=== PATIENT | male | born 1955 | race Caucasian/White ===

== ENCOUNTER → 2017-12-08 | Outpatient (CLI) | payer BC ==
[~2017-12-08] MED LIST: PROTONIX20 MG PO
== END ==
LOC: MHCPAIN 07:57
DX: G89.29 Other chronic pain (principal); M47.817 Spondylosis without myelopathy or radiculopathy, lumbosacral region; M53.3 Sacrococcygeal disorders, not elsewhere classified
CPT/HCPCS: G0463

== ENCOUNTER 2017-12-29 10:16 | Outpatient (RCR) | payer BC | END 2018-03-29 | disposition home or self-care (01) | LOC: MKS.ESL.PT | DX: M54.5 Low back pain (principal) ==

== ENCOUNTER → 2018-03-10 | Outpatient (CLI) | payer BC | LOC: MHCPAIN 08:10 | DX: G89.29 Other chronic pain (principal); M47.817 Spondylosis without myelopathy or radiculopathy, lumbosacral region; M53.3 Sacrococcygeal disorders, not elsewhere classified | CPT/HCPCS: G0463 ==